=== PATIENT | female | born 1970 | race African-American/Black ===

== ENCOUNTER 2024-04-02 21:29 | Emergency (ER) | payer OTHER ==
[2024-04-02] MEDS ORDERED: Ketorolac Tromethamine 30 MG (1 mL) VIAL ONE (22:16)
== END 2024-04-02 23:21 | disposition home or self-care (01) ==
LOC: CSHERS 21:29
DX: F10.129 Alcohol abuse with intoxication, unspecified (principal); I10 Essential (primary) hypertension
CPT/HCPCS: 76705; 96374; J1885